=== PATIENT | female | born 1945 | race Caucasian/White ===

== ENCOUNTER 2019-05-16 05:18 | Day surgery (SDC) | payer MEDICARE ==
[2019-05-15 09:55] LABS: BASOPHILS # (AUTO) 0.1 X10'3 (0-0.2); BASOPHILS % (AUTO) 0.9 % (0-1); EOSINOPHILS # (AUTO) 0.1 X10'3 (0-0.9); EOSINOPHILS % (AUTO) 0.8 % (0-6); LYMPHOCYTES # (AUTO) 2.3 X10'3 (1.1-4.8); LYMPHOCYTES % (AUTO) 24.1 % (21-51); MEAN CORPUSCULAR HEMOGLOBIN 31.8 PG (27.0-31.0); MEAN CORPUSCULAR HGB CONC 34.4 g/dL (33.0-36.5); MEAN CORPUSCULAR VOLUME 92.5 FL (78-98); MEAN PLATELET VOLUME 8.8 FL (7.4-10.4); MONOCYTES # (AUTO) 0.6 X10'3 (0-0.9); MONOCYTES % (AUTO) 6.3 % (2-12); NEUTROPHILS # (AUTO) 6.4 X10'3 (1.8-7.7); NEUTROPHILS % (AUTO) 67.9 % (42-75); PRE OP HEMOGLOBIN 14.8 g/dL (12.0-16.0); PRE OP PLATELET COUNT 262 X10'3 (140-440); RED BLOOD COUNT 4.65 X10'6 (4.20-5.60); RED CELL DISTRIBUTION WIDTH 13.3 % (11.5-14.5)
[2019-05-15 10:07] LABS: ALBUMIN 3.8 G/DL (3.4-5.0); ALBUMIN/GLOBULIN RATIO 1.1 (1.1-1.5); ALKALINE PHOSPHATASE 75 IU/L (46-116); BLOOD UREA NITROGEN 12 MG/DL (7-18); BUN/CREATININE RATIO 18.2 (6.6-38.0); CALCIUM 9.7 MG/DL (8.5-10.1); CHLORIDE 106 MMOL/L (99-107); CREATININE 0.66 MG/DL (0.40-0.90); PRE OP ALT 29 U/L (30-65); PRE OP ANION GAP 10 (8-16); PRE OP AST 26 U/L (10-37); PRE OP BILIRUB, TOTAL 0.7 MG/DL (0.0-1.0); PRE OP GLUCOSE 101 MG/DL (70-104); PRE OP POTASSIUM 4.3 MMOL/L (3.4-5.1); PRE OP SODIUM 143 MMOL/L (135-145); TOTAL CARBON DIOXIDE 27.4 MMOL/L (24-32); TOTAL PROTEIN 7.3 G/DL (6.4-8.2); eGFR 88 ML/MIN
[2019-05-16] VITALS (8 sets, daily range): BP systolic 100–147; BP diastolic 54–93
[~2019-05-16] VITALS: Ht 147.3 cm; Wt 95.0 kg
[~2019-05-16 05:18] MED LIST: ATOR40TA PO; LISI40TA4 PO; OMEP20CA11 PO; ringers solution, lacted 1,000 ML IV SCH
[2019-05-16] MEDS ORDERED: famotidine 20mg tablet PO ONE (05:30)
[2019-05-16] MEDS ORDERED: LIDOcaine 1% (10mg/ml) 2ml vial ONE (06:24)
[2019-05-16] MEDS ORDERED: ceFAZolin 2gm in dextrose, iso 50 ML IV ONE (06:40)
[2019-05-16] MEDS ORDERED: sevoflurane 250ml liquid IH ONE (07:20)
[2019-05-16] MEDS ORDERED: dexamethasone sod phosphate 10mg/ml inj ONE (07:20)
[2019-05-16] MEDS ORDERED: fentaNYL /PF 50mcg/ml 5ml ampule ONE (07:25)
[2019-05-16] MEDS ORDERED: BUPIVAcaine/PF 2.5 mg/ml (0.25%) 30ml vial ONE (08:09)
[2019-05-16] MEDS ORDERED: LIDOcaine 2% (20mg/ml) 5ml vial ONE (08:24)
[2019-05-16] MEDS ORDERED: propofol inj 20 ML IV ONE (08:24)
[2019-05-16] MEDS ORDERED: glycopyrrolate 0.2mg/ml inj ONE (08:24)
[2019-05-16] MEDS ORDERED: neostigmine methylsulfate 1 MG/ML 10ml vial ONE (08:24)
[2019-05-16] MEDS ORDERED: ondansetron/PF 4mg/2ml inj ONE (08:24)
[2019-05-16] MEDS ORDERED: rocuronium 10mg/ml inj IV ONE (08:24)
--- NOTE | 2019-05-16 08:55 | NUR ---
ADMITTED TO PACU FROM OR ACCOMPANIED BY ANESTHESIA. INTIAL PHYSICAL ASSESSMENT DONE AND RECORDED. REPORT RECEIVED FROM ANESTHESIA.
[2019-05-16] MEDS ORDERED: ringers solution, lacted 1,000 ML IV SCH (08:58)
[2019-05-16] MEDS ORDERED: ondansetron/PF 4mg/2ml inj IV PRN (09:00)
[2019-05-16] MEDS ORDERED: HYDROmorphone inj. 0.5 MG/0.5 ML DISP.SYRIN IV PRN ×2 (09:00)
[2019-05-16] MEDS ORDERED: ePHEDrine 50MG/ML INJ. ONE (09:04)
[2019-05-16] MEDS ORDERED: HYDROcodone/acetaminophen 10/325mg tab PO PRN (09:05)
--- NOTE | 2019-05-16 09:55 | NUR ---
DISCHARGE CRITERIA MET, DISCHARGE INSTRUCTIONS GIVEN, DEMONSTRATES VERBAL UNDERSTANDING. DISCHARGED HOME IN GOOD CONDITION.
== END 2019-05-16 09:55 | disposition home or self-care (01) ==
LOC: PAS 05:18
PROVIDERS: ATTEND Orthopaedic Surgery
DX: M65.811 Other synovitis and tenosynovitis, right shoulder (principal); M75.51 Bursitis of right shoulder; M75.81 Other shoulder lesions, right shoulder; M19.011 Primary osteoarthritis, right shoulder; G47.33 Obstructive sleep apnea (adult) (pediatric); I10 Essential (primary) hypertension; K21.9 Gastro-esophageal reflux disease without esophagitis; E78.00 Pure hypercholesterolemia, unspecified; E66.9 Obesity, unspecified; Z68.41 Body mass index [BMI] 40.0-44.9, adult; Z79.899 Other long term (current) drug therapy; Z98.890 Other specified postprocedural states; Z90.710 Acquired absence of both cervix and uterus; Z88.5 Allergy status to narcotic agent; Z88.8 Allergy status to other drugs, medicaments and biological substances; Z72.89 Other problems related to lifestyle
CPT/HCPCS: 29824; 29826; 36415; 80053; 82948; 85025; 93005; J1100; J2001; J2405; J2704; J2710; J3010; J3490; J7120; A4565; A4618; A6449; A7000

== ENCOUNTER 2021-06-05 10:18 | Day surgery (SDC) | payer MEDICARE ==
[2021-06-02 16:19] LABS: BASOPHILS # (AUTO) 0.1 X10'3 (0-0.2); BASOPHILS % (AUTO) 1.1 % (0-1); EOSINOPHILS # (AUTO) 0.1 X10'3 (0-0.9); EOSINOPHILS % (AUTO) 1.4 % (0-6); LYMPHOCYTES # (AUTO) 2.2 X10'3 (1.1-4.8); MEAN CORPUSCULAR HEMOGLOBIN 31.8 PG (27.0-31.0); MEAN CORPUSCULAR HGB CONC 34.7 g/dL (33.0-36.5); MEAN CORPUSCULAR VOLUME 91.8 FL (78-98); MEAN PLATELET VOLUME 8.5 FL (7.4-10.4); MONOCYTES # (AUTO) 0.6 X10'3 (0-0.9); MONOCYTES % (AUTO) 6.5 % (2-12); NEUTROPHILS # (AUTO) 5.9 X10'3 (1.8-7.7); PRE OP HEMATOCRIT 40.3 % (35.0-45.0); PRE OP PLATELET COUNT 289 X10'3 (140-440); RED BLOOD COUNT 4.39 X10'6 (4.20-5.60); RED CELL DISTRIBUTION WIDTH 13.3 % (11.5-14.5)
[2021-06-02 16:33] LABS: ALBUMIN 3.9 G/DL (3.4-5.0); ALBUMIN/GLOBULIN RATIO 1.1 (1.1-1.5); ALKALINE PHOSPHATASE 59 IU/L (46-116); BLOOD UREA NITROGEN 15 MG/DL (7-18); BUN/CREATININE RATIO 20.3 (6.6-38.0); CALCIUM 10.1 MG/DL (8.5-10.1); CHLORIDE 103 MMOL/L (99-107); CREATININE 0.74 MG/DL (0.40-0.90); PRE OP ALT 31 U/L (30-65); PRE OP ANION GAP 11 (8-16); PRE OP AST 25 U/L (10-37); PRE OP BILIRUB, TOTAL 0.7 MG/DL (0.0-1.0); PRE OP GLUCOSE 101 MG/DL (70-104); PRE OP POTASSIUM 3.4 MMOL/L (3.4-5.1); PRE OP SODIUM 142 MMOL/L (135-145); TOTAL PROTEIN 7.6 G/DL (6.4-8.2); eGFR 77 ML/MIN
[~2021-06-05] VITALS: Ht 147.3 cm; Wt 86.2 kg
[~2021-06-05 10:18] MED LIST changes: +AMLO5TAB16 PO; +HYDR25TA4 PO; +LISI40TA13 PO; -LISI40TA4 PO; -OMEP20CA11 PO; +OMEP20CA15 PO; +cefazolin/dext.iso 2gm/50ml IV ONE; +famotidine 20mg tablet PO ONE
[2021-06-05 12:00] VITALS: BP 149/82
[2021-06-05] MEDS ORDERED: LIDOcaine 1% 30ml preserv. free vial ONE (12:27)
[2021-06-05] MEDS ORDERED: BUPIVAcaine/PF 2.5 mg/ml (0.25%) 30ml vial ONE (12:27)
[2021-06-05] MEDS ORDERED: fentaNYL/PF 50MCG/1 ML 2ML syringe ONE (12:44)
[2021-06-05] MEDS ORDERED: midazolam 1 mg/ML 2ml injection ONE (12:44)
[2021-06-05] MEDS ORDERED: propofol inj 20 ML IV ONE (13:04)
[2021-06-05 13:15] VITALS: BP 94/50
--- NOTE | 2021-06-05 13:15 | NUR ---
Received from OR via DO , accompanied by Anesthesiologist EVELIN and report given by Anesthesiolgist. SMALL INCISION TO LEFT NECK NO DRAINAGE DERMABONDED SHUT PATIENT DENIES PAIN 20G RUE LR@100 VSS Addendum: 06/05/21 at 1331 by Chaim Porter RN, RN Amended: Links added.
[2021-06-05 13:20] VITALS: BP 94/50
[2021-06-05 13:30] VITALS: BP 89/51
[2021-06-05] MEDS ORDERED: acetaminophen 325mg tablet PO PRN (13:30)
--- NOTE | 2021-06-05 13:45 | NUR ---
ALL DISCHARGE CRITERIA HAS BEEN MET. VSS, PAIN AT A TOLERABLE LEVEL, ABLE TO SAFELY AMBULATE AND TRANSFER SELF. IV TAKEN OUT WITHOUT ANY COMPLICATIONS. ALL DISCHARGE INSTRUCTIONS COVERED WITH PATIENT AND ALL QUESTIONS ANSWERED. PATIENT TAKEN OUT VIA WHEELCHAIR TO PERSONAL VEHICLE WHERE FAMILY/FRIEND DROVE PATIENT HOME. Addendum: 06/05/21 at 1415 by Chaim Portre RN, RN Amended: Links added.
== END 2021-06-05 13:45 | disposition home or self-care (01) ==
LOC: PAS 10:18
PROVIDERS: ATTEND Surgery
DX: R22.1 Localized swelling, mass and lump, neck (principal); C82.31 Follicular lymphoma grade IIIa, lymph nodes of head, face, and neck; I10 Essential (primary) hypertension; K21.9 Gastro-esophageal reflux disease without esophagitis; E11.9 Type 2 diabetes mellitus without complications; E78.5 Hyperlipidemia, unspecified; Z98.890 Other specified postprocedural states; Z90.710 Acquired absence of both cervix and uterus; Z88.5 Allergy status to narcotic agent; Z88.8 Allergy status to other drugs, medicaments and biological substances; Z88.1 Allergy status to other antibiotic agents; Z79.899 Other long term (current) drug therapy; Z20.822 Contact with and (suspected) exposure to COVID-19; Z82.49 Family history of ischemic heart disease and other diseases of the circulatory system; Z80.0 Family history of malignant neoplasm of digestive organs
CPT/HCPCS: 36415; 38500; 80053; 82948; 85025; 88184; 88185; 93005; J0690; J2250; J2704; J3010; J3490; J7030; J7120; U0003; U0005; Z7506; Z7512; A4215; A4618; A7000

== ENCOUNTER 2021-07-18 10:20 | Day surgery (SDC) | payer MEDICARE ==
[~2021-07-18] VITALS: Ht 147.3 cm; Wt 83.6 kg
[~2021-07-18 10:20] MED LIST changes: +LIDOcaine 1% 30ml preserv. free vial IJ STA; -cefazolin/dext.iso 2gm/50ml IV ONE; -famotidine 20mg tablet PO ONE; -ringers solution, lacted 1,000 ML IV SCH
[2021-07-18 10:45] VITALS: BP 127/71
[2021-07-18] MEDS ORDERED: normal saline 1000ml 1,000 ML IV SCH (11:05)
[2021-07-18] MEDS ORDERED: diphenhydrAMINE 50 mg/ml inj ONE (15:33)
[2021-07-18] MEDS ORDERED: midazolam 1 mg/ML 2ml injection ONE (15:33)
[2021-07-18] MEDS ORDERED: heparin sodium, porcine/PF 100unit/ml 5ML syringe ONE (15:33)
[2021-07-18] MEDS ORDERED: fentaNYL/PF 50MCG/1 ML 2ML syringe ONE (15:34)
[2021-07-18] MEDS ORDERED: ondansetron/PF 4mg/2ml inj ONE (15:44)
[2021-07-18 16:10] VITALS: BP 128/85
[2021-07-18 16:30] VITALS: BP 132/55
[2021-07-18 16:42] VITALS: BP 138/66
== END 2021-07-18 16:55 | disposition home or self-care (01) ==
LOC: SSTAY O 10:20
PROVIDERS: ATTEND Preventive Medicine Aerospace Medicine
DX: C82.83 Other types of follicular lymphoma, intra-abdominal lymph nodes (principal); Z88.8 Allergy status to other drugs, medicaments and biological substances; Z88.5 Allergy status to narcotic agent
CPT/HCPCS: 36561; 76937; 77001; C1788; C1894; J1200; J1642; J2250; J2405; J3010; J7030